=== PATIENT | male | born 1990 | race Hispanic/Latino ===

== ENCOUNTER 2018-10-12 06:56 | Emergency (ER) | payer SELFPAY ==
[2018-10-12] MEDS ORDERED: SODIUM CHLORIDE 0.9% 1000ML 1,000 ML IV ONE ×2 (07:28→07:45)
[2018-10-12] MEDS ORDERED: ACETAMINOPHEN EXTRA STRENGTH 500 MG TABLET ONE (07:28)
[2018-10-12 07:36] LABS: BASOPHILS % (AUTO) 2.2 % (0.0-5.0); HEMATOCRIT 44.9 % (42-54); LYMPHOCYTES % (AUTO) 7.5 % (21.0-51.0); MEAN CORPUSCULAR HEMOGLOBIN 30.8 pg (27.0-33.0); MONOCYTES % (AUTO) 5.7 % (3.0-13.0); NEUTROPHILS % (AUTO) 84.6 % (40.0-77.0); PLATELET COUNT (AUTO) 231 K/uL (130-400); RED CELL DISTRIBUTION WIDTH 13.2 % (11.0-15.5); WHITE BLOOD COUNT (AUTO) 15.3 K/uL (4.8-10.8)
[2018-10-12 07:43] LABS: CARBON DIOXIDE 22 mmol/L (21-32); CHLORIDE 101 mmol/L (101-111); CREATININE 1.1 mg/dL (0.5-1.5); GLOMERULAR FILTR. RATE CALC 86 mL/min (>60); GLUCOSE,RANDOM 130 mg/dL (70-105); POTASSIUM 3.1 mmol/L (3.5-5.1); SODIUM SERUM 135 mmol/L (136-145); UREA NITROGEN, BLOOD 13 mg/dL (7-18)
[2018-10-12] MEDS ORDERED: CEFTRIAXONE SODIUM 2 GM VIAL ONE (07:44)
[2018-10-12] MEDS ORDERED: ONDANSETRON HCL 4 MG/2 ML VIAL ONE (07:44)
[2018-10-12 07:45] LABS: INR 1.09 (0.85-1.15); PARTIAL THROMBOPLASTIN TIME 29.7 SEC (26.3-35.5); PROTHROMBIN TIME 11.4 SEC (9.6-11.6)
[2018-10-12 07:55] LABS: ALANINE AMINOTRANSFERASE 41 U/L (12-78); ALBUMIN 3.9 g/dL (3.5-5.0); ASPARTATE AMINOTRANSFERASE 25 U/L (10-37); BILIRUBIN,TOTAL 1.1 mg/dL (0.2-1.0); CREATINE KINASE, TOTAL 255 U/L (21-232); MYOGLOBIN 76 ng/mL (10-92); TOTAL PROTEIN, SERUM 8.1 g/dL (6.0-8.3); TROPONIN I < 0.04 ng/mL (0.00-0.06)
[2018-10-12 08:08] LABS: APPEARANCE,URINE Clear (CLEAR); BILIRUBIN,URINE Negative (NEGATIVE); COLOR,URINE Yellow (YELLOW); GLUCOSE, URINE (UA) Negative (NEGATIVE); KETONES,URINE Trace mg/dL (NEGATIVE); LEUKOCYTE ESTERASE ,URINE Negative (NEGATIVE); NITRATE,URINE Negative (NEGATIVE); OCCULT BLOOD,URINE Negative (NEGATIVE); PROTEIN,URINE POS 1+ mg/dL (NEGATIVE)
[2018-10-12 08:26] LABS: BACTERIA,URINE Few /HPF (None Seen); MUCUS,URINE Many LPF (None Seen); RBC,URINE None Seen /HPF (0-1); SQUAMOUS EPITHELIAL CELL,UR 0-2 /HPF (0-2); WBC,URINE None Seen /HPF (0-1)
== END 2018-10-12 10:48 | disposition home or self-care (01) ==
LOC: EDH 06:56
DX: K52.9 Noninfective gastroenteritis and colitis, unspecified (principal); Z87.891 Personal history of nicotine dependence
CPT/HCPCS: 36415; 71045; 80053; 81001; 82550; 83605; 83874; 84484; 85025; 85610; 85730; 87040 ×2; 87088; 93005; 96361; 96374; 96375; 99285; J0696; J2405; J7030 ×2

== ENCOUNTER 2019-06-09 11:39 | Emergency (ER) | payer SELFPAY | END 2019-06-09 11:52 | disposition left against medical advice (07) | LOC: EDH 11:39 | DX: J02.9 Acute pharyngitis, unspecified (principal); R06.02 Shortness of breath; Z72.0 Tobacco use; Z53.21 Procedure and treatment not carried out due to patient leaving prior to being seen by health care provider ==

== ENCOUNTER 2019-11-25 00:54 | Emergency (ER) | payer SELFPAY ==
[2019-11-25] MEDS ORDERED: IBUPROFEN 200 MG TAB ONE (01:42)
[2019-11-25] MEDS ORDERED: PENICILLIN V POTASSIUM 500 MG TABLET ONE (01:42)
== END 2019-11-25 02:25 | disposition home or self-care (01) ==
LOC: EDH 00:54
DX: K02.9 Dental caries, unspecified (principal); K05.10 Chronic gingivitis, plaque induced; K08.89 Other specified disorders of teeth and supporting structures

== ENCOUNTER 2020-01-24 23:43 | Emergency (ER) | payer OTHER ==
[2020-01-25] MEDS ORDERED: LIDOCAINE HCL 2% VISCOUS 15 ML UDCUP ONE (00:07)
[2020-01-25] MEDS ORDERED: CLINDAMYCIN HCL 150 MG CAP ONE (00:08)
[2020-01-25] MEDS ORDERED: KETOROLAC TROMETHAMINE 60 MG/2 ML VIAL ONE (00:08)
== END 2020-01-25 00:36 | disposition home or self-care (01) ==
LOC: EDH 23:43
DX: K04.7 Periapical abscess without sinus (principal); K02.9 Dental caries, unspecified
CPT/HCPCS: 41800; 96372; 99284; J1885

== ENCOUNTER 2020-05-27 07:46 | Emergency (ER) | payer OTHER ==
[2020-05-27 08:27] LABS: RAPID GROUP A STREP NEGATIVE (NEGATIVE)
== END 2020-05-27 09:16 | disposition home or self-care (01) ==
LOC: EDH 07:46
DX: J02.9 Acute pharyngitis, unspecified (principal); R51.9 Headache, unspecified; Z72.0 Tobacco use
CPT/HCPCS: 87804; 87880

== ENCOUNTER 2020-05-31 16:39 | Emergency (ER) | payer SELFPAY | END 2020-05-31 19:57 | disposition home or self-care (01) | LOC: EDH 16:39 | DX: J02.9 Acute pharyngitis, unspecified (principal); T42.4X5A Adverse effect of benzodiazepines, initial encounter; F19.10 Other psychoactive substance abuse, uncomplicated; Y92.89 Other specified places as the place of occurrence of the external cause ==